=== PATIENT | male | born 1975 | race African-American/Black ===

== ENCOUNTER 2021-02-05 19:45 | Emergency (ER) | payer OTHER ==
[2021-02-05 22:09] VITALS: BP 167/108; PULSE 94; TEMP 98; BMI 30.7
== END 2021-02-05 23:05 | disposition home or self-care (01) ==
LOC: FER 19:45
DX: S22.49XA Multiple fractures of ribs, unspecified side, initial encounter for closed fracture (principal)
CPT/HCPCS: 99284-25